=== PATIENT | male | born 2000 | race Caucasian/White ===

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

== ENCOUNTER 2023-06-13 06:18 | Emergency (ER) | payer SELFPAY ==
[2023-06-13 06:39] VITALS: BP 108/51; PULSE 90
== END 2023-06-13 06:50 | disposition home or self-care (01) ==
LOC: DL.ED 06:18
DX: S39.012A Strain of muscle, fascia and tendon of lower back, initial encounter (principal); F17.210 Nicotine dependence, cigarettes, uncomplicated; Z86.16 Personal history of COVID-19; X50.0XXA Overexertion from strenuous movement or load, initial encounter; Y93.F2 Activity, caregiving, lifting; Y99.0 Civilian activity done for income or pay
CPT/HCPCS: 99282; 99283